=== PATIENT | male | born 1950 | race Caucasian/White ===

== ENCOUNTER → 2019-12-10 | Outpatient (CLI) | payer OTHER ==
--- NOTE | 2019-12-10 16:26 | RAD ---
Examination: PET W CT SKULL TO MIDTHIGH History: Colon cancer initial staging. Comparison/Correlation: None FINDINGS: Net dose 13.9 mCi F-18 FDG was administered intravenously for purposes of PET/CT exam. Blood glucose level at the time of radiotracer administration was 119 mg/dL. Imaging was performed from the skull base to the proximal thighs. Hepatic reference uptake is SUV max of 2.2 . Mild uptake SUV max of up to 3 is noted at the left lateral oropharynx. No definite suspicious finding on noncontrast CT images provided. Uptake of radiotracer within the thorax is unremarkable. No suspicious pulmonary nodule or mass lesions. No infiltrate or pleural effusion. Cholecystectomy noted. There is a 5.5 cm x 2.6 cm right hepatic lobe segment 7 low-attenuation region with SUV max of 7.6. Few punctate left renal calyceal calculi present. No hydronephrosis. Left lower quadrant ostomy noted. Large quantity of stool in the colon. No abnormal uptake involving the lower abdomen or pelvis. No enlarged abdominal or pelvic lymph nodes. Note is made of a posterior right thigh lipoma measuring 7.6 cm x 6.9 cm. Calcification noted within. It is not fully included its very distal aspect for purposes of this exam although it appears to be most included. No abnormal uptake. IMPRESSION: Right hepatic lobe dome at segment 7 in subcapsular location which may represent a metastatic lesion or other neoplastic mass with abnormal uptake. Mild nonspecific uptake involving the left lateral oropharynx. Correlate with direct visualization in determining further imaging assessment. No definite suspicious finding in the basis of noncontrast CT images provided. Proximal, posterior right thigh lipoma. PQRS Compliance Statement: One or more of the following individualized dose reduction techniques were utilized for this examination: 1. Automated exposure control 2. Adjustment of the mA and/or kV according to patient size 3. Use of iterative reconstruction technique Electronically signed by: Slade Palmer MD (12/10/2019 4:23 PM) [facility]
== END | disposition home or self-care (01) ==
LOC: PETSC 10:08
PROVIDERS: ATTEND Internal Medicine Hematology & Oncology
DX: C18.7 Malignant neoplasm of sigmoid colon (principal); N20.0 Calculus of kidney
CPT/HCPCS: 78815; A9552